=== PATIENT | male | born 1995 | race Caucasian/White ===

== ENCOUNTER 2017-11-21 08:26 | Emergency (ER) | payer MEDICAID, OTHER ==
--- NOTE | 2017-11-21 09:12 | EDM.PDOC ---
ED HPI GENERAL MEDICAL PROBLEM - General Chief Complaint: Skin Complaint Stated Complaint: RASH RT ARM Time Seen by Provider: 11/21/17 08:58 Source of Information: Reports: Patient, RN Notes Reviewed History Limitations: Reports: No Limitations - History of Present Illness INITIAL COMMENTS - FREE TEXT/NARRATIVE: 21-year-old gentleman presents to the emergency department today with a complaint of rash. He's noticed over the last couple days she's developed a rash on his forearms. He states it is itchy it is mainly located to his forearms he denies any new contacts no new Medications no new product He has not tried anything for thiss. - Related Data Allergies Allergy/AdvReac Type Severity Reaction Status Date / Time Penicillins Allergy Cannot Verified 11/21/17 08:40 Remember venom-honey bee Allergy Swelling Verified 11/21/17 08:40 [bee venom (honey bee)] Home Meds: Home Meds Lisinopril 10 mg PO DAILY 11/21/17 [History] Triamcinolone Acetonide [Triamcinolone Acetonide 0.1% Crm] 1 applic .XX BID #15 gm 11/21/17 [Rx] Past Medical History Cardiovascular History: Reports: Hypertension - Past Surgical History HEENT Surgical History: Reports: Myringotomy w Tube(s) Musculoskeletal Surgical History: Reports: Other (See Below) Other Musculoskeletal Surgeries/Procedures:: BONE REMOVAL SURGERY IN WRIST Social & Family History - Tobacco Use Smoking Status *Q: Never Smoker - Caffeine Use Caffeine Use: Reports: Soda - Recreational Drug Use Recreational Drug Use: No ED ROS GENERAL - Review of Systems Review Of Systems: See Below Skin: Reports: Pruritis, Rash ED EXAM, SKIN/RASH Exam: See Below Text/Narrative:: examination of the rash he does have an erythematous patch on the forearm anterior aspect right side there is smaller patches with macules on the left forearm anterior aspect Exam Limited By: No Limitations General Appearance: Alert, WD/WN, No Apparent Distress Course - Vital Signs Last Recorded V/S: Last Vital Signs Temp 99 F 11/21/17 08:39 Pulse 61 11/21/17 08:39 Resp 20 11/21/17 08:39 BP 134/78 11/21/17 08:39 Pulse Ox 97 11/21/17 08:39 Departure - Departure Time of Disposition: 09:11 Disposition: Home, Self-Care 01 Condition: Good Clinical Impression: Atopic dermatitis Qualifiers: Atopic dermatitis type: unspecified Qualified Code(s): L20.9 - Atopic dermatitis, unspecified - Discharge Information Prescriptions: Triamcinolone Acetonide [Triamcinolone Acetonide 0.1% Crm] 1 applic .XX BID #15 gm Referrals: Roel Deleon MD [Primary Care Provider] - Additional Instructions: Use the steroid cream until clear apply to affected area twice a day. Please followup with your primary care provider in 7-10 days if not better, please call return to the emergency department with worsening of symptoms. - Assessment/Plan Plan: Assessment Acuity = acute Site and laterality = atopic dermatitis Etiology = unclear etiology Manifestations = pruritus Location of injury = Home Lab values = none Plan Prescription written for triamcinolone 0.1% cream 15 g bottle applied to affected area twice a day until clear, follow-up with primary care in 7-10 days if no improvement use Benadryl as needed for symptomatic relief This note was dictated using [employer] voice recognition software please call with any questions on syntax or grammar.
== END 2017-11-21 09:36 | disposition home or self-care (01) ==
LOC: JP.ED 08:26
DX: L20.9 Atopic dermatitis, unspecified (principal); I10 Essential (primary) hypertension; Z88.0 Allergy status to penicillin; Z91.030 Bee allergy status; Z79.899 Other long term (current) drug therapy
CPT/HCPCS: 99283